=== PATIENT | female | born 1980 | race African-American/Black ===

== ENCOUNTER 2016-11-06 23:25 | Emergency (ER) | payer OTHER ==
--- NOTE | ~2016-11-06 | EKG ---
PATIENT: RONALDO HARGROVE UNIT #: [id number] Ventricular Rate: 58 BPM Atrial Rate: 58 BPM P-R Interval: 168 ms QRS Duration: 82 ms Q-T Interval: 444 ms QTC Calculation(Bezet): 435 ms P Pickrell: 35 degrees Calculated R Pickrell: -6 degrees Calculated T Pickrell: 3 degrees Diagnosis Line: Sinus bradycardia Diagnosis Line: Moderate voltage criteria for LVH, may be normal Diagnosis Line: variant Diagnosis Line: Otherwise normal ECG Diagnosis Line: No previous ECGs available Diagnosis Line: Confirmed by CHRIS FARRAR MD ([id number]) on 11/10/2016 Diagnosis Line: 12:00:01 PM INTERPRETING MD: CHARAN JJ
--- NOTE | ~2016-11-06 | CR72 ---
[facility] A Service [facility] RADIOLOGY TEXT RESULTS PATIENT: RONALDO HARGROVE LOCATION: SED : 82 UNIT #: [id number] AGE: [address]: Rhett Cruz MD SEX: F ORDER DR: [id number] [place] [id number] E MR#: [id number] Acc #: [id number] NAME: RONALDO HARGROVE. : 1980 SEX: F STUDY DATE/TIME: 11/06/2016 23:42 UNIT: SED ROOM: STUDY DESCRIPTION: CR Chest Single View Portable Attending Physician: Rhett Cruz M.D. Ordering Physician: Rhett Cruz M.D. Primary Care Physician: Vilma Weir MEDICAL IMAGING REPORT This report is preliminary unless electronic signature is present. EXAM AP portable chest, 11/06/2016 HISTORY 36-year-old female in the ED complaining of mid chest pain beginning about 1 hour prior to arrival. TECHNIQUE AP portable chest x-ray. FINDINGS The heart size and pulmonary vascularity are within normal limits given AP portable technique. The lungs appear clear. No visible pulmonary infiltrate or pleural effusion. No change since 08/22/2016. IMPRESSION Negative chest. No change since 08/22/2016. Dictated by... Jayden Melvin M.D. THIS IS AN ELECTRONICALLY VERIFIED REPORT Jayden Melvin M.D. at 11/07/2016 4:06 AM LOPEZ/carmine TD: 11/07/2016 02:42 JOB #: [id number] MEDICAL IMAGING REPORT [facility] A [facility] RADIOLOGY TEXT RESULTS PATIENT: RONALDO HARGROVE LOCATION: SED : 82 UNIT #: [id number] AGE: [address]: Rhett Cruz MD SEX: F ORDER DR: Page 1 of 1
[~2016-11-06 23:25] MED LIST: ACYCLOVIR15 G1 TOP; BACTRIM DS TABL1 TA1 PO; BACTRIM DS TABL1 TA2 PO; BENADRYL25 M1 PO; CIPRO; CIPRO PO; DICLOFENAC PO; DIFLUCAN PO; ERYTHROMYCIN B500 MG; GLUCOPHAGE XR750 MG PO; IBUPROFEN800 MG PO; KEFLEX500 M1 PO; MELOXICAM15 MG PO; MOTRIN600 M1 PO; NAPROSYN250 M1 PO; NEURONTIN PO; NO MEDICATIONS; PREDNISONE PO; PYRIDIUM PO; PYRIDIUM100 MG; ROBITUSSIN A-C S5 ML PO; TYLENOL #3 PO; URISPAS100 M1 PO; VOLTAREN75 MG PO; ZOFRAN PO
== END 2016-11-07 01:02 | disposition home or self-care (01) ==
LOC: SED 23:25
DX: R07.9 Chest pain, unspecified (principal); M54.6 Pain in thoracic spine; Z88.0 Allergy status to penicillin; Z88.8 Allergy status to other drugs, medicaments and biological substances
CPT/HCPCS: 71010; 93005; 96372; 99284; J1885